=== PATIENT | female | born 1950 | race Caucasian/White ===

== ENCOUNTER 2018-02-18 13:45 | Emergency (ER) | payer MEDICARE ==
[2018-02-18 13:55] VITALS: BP 134/58
--- NOTE | 2018-02-18 14:22 | ER Document Report ---
ED Medical Screen (RME) - General Chief Complaint: Blurred Vision Stated Complaint: BLURRED VISION Time Seen by Provider: 02/18/18 14:22 TRAVEL OUTSIDE OF THE [place] IN LAST 30 DAYS: No - Related Data Allergies/Adverse Reactions: ibuprofen Adverse Reaction (Verified 02/18/18 13:47) Physical Exam - Vital signs Vitals: Temp Pulse Resp BP Pulse Ox 97.5 F 92 18 134/58 H 95 02/18/18 13:54 02/18/18 13:54 02/18/18 13:54 02/18/18 13:54 02/18/18 13:54 Course - Vital Signs Vital signs: Temp Pulse Resp BP Pulse Ox 97.5 F 92 18 134/58 H 95 02/18/18 13:54 02/18/18 13:54 02/18/18 13:54 02/18/18 13:54 02/18/18 13:54
--- NOTE | 2018-02-18 14:35 | ER Document Report ---
ED General - General Chief Complaint: Blurred Vision Stated Complaint: BLURRED VISION Time Seen by Provider: 02/18/18 14:22 TRAVEL OUTSIDE OF THE [place] IN LAST 30 DAYS: No - HPI Notes: 67-year-old female presents after being pulled over by police officers for swerving. Patient was driving from [place] to [place] to see her primary care doctor was pulled over for swirling suspicion of DWI. 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 Seen by her eye doctor a year ago and is scheduled to see him this month as well. Police called the ambulance for evaluation emergency department versus a driving under the influence. Patient has no complaints she feels that her baseline nothing is changed she did not want to be transported to the hospital. Patient able to ambulate at baseline neurologically intact. Patient is reading her iPad comfortably in the exam room. - Related Data Allergies/Adverse Reactions: ibuprofen Adverse Reaction (Verified 02/18/18 13:47) Past Medical History - Social History Smoking Status: Unknown if Ever Smoked Family History: Reviewed & Not Pertinent Review of Systems - Review of Systems Notes: REVIEW OF SYSTEMS: CONSTITUTIONAL: -fevers, -chills EENT: -eye pain, -difficulty swallowing, -nasal congestion CARDIOVASCULAR: -chest pain, -syncope. RESPIRATORY: -cough, -SOB GASTROINTESTINAL: -abdominal pain, -nausea, -vomiting, -diarrhea GENITOURINARY: -dysuria, -hematuria MUSCULOSKELETAL: -back pain, -neck pain SKIN: -rash or skin lesions. HEMATOLOGIC: -easy bruising or bleeding. LYMPHATIC: -swollen, enlarged glands. NEUROLOGICAL: -altered mental status or loss of consciousness, -headache, - neurologic symptoms PSYCHIATRIC: -anxiety, -depression. ALL OTHER SYSTEMS REVIEWED AND NEGATIVE. Physical Exam - Vital signs Vitals: Temp Pulse Resp BP Pulse Ox 97.5 F 92 18 134/58 H 95 02/18/18 13:54 02/18/18 13:54 02/18/18 13:54 02/18/18 13:54 02/18/18 13:54 - Notes Notes: PHYSICAL EXAMINATION: GENERAL: Well-appearing, well-nourished and in no acute distress. HEAD: Atraumatic, normocephalic. EYES: Pupils equal round and reactive to light, extraocular movements intact, sclera anicteric, conjunctiva are normal. ENT: nares patent, oropharynx clear without exudates. Moist mucous membranes. NECK: Normal range of motion, supple without lymphadenopathy LUNGS: Breath sounds clear to auscultation bilaterally and equal. No wheezes rales or rhonchi. HEART: Regular rate and rhythm without murmurs ABDOMEN: Soft, nontender, normoactive bowel sounds. No guarding, no rebound. No masses appreciated. EXTREMITIES: Normal range of motion, no pitting or edema. No cyanosis. NEUROLOGICAL: Cranial nerves grossly intact. Normal speech, normal gait. Normal sensory and motor exams. PSYCH: Normal mood, normal affect. SKIN: Warm, Dry, normal turgor, no rashes or lesions noted. Course - Re-evaluation Re-evalutation: 02/18/18 14:34 Well-appearing female no acute distress no complaints neurologically intact no visual trouble in the department. Sent in by police versus possible arrest for DWI. Patient will be discharged home improved follow-up with her family doctor return if anything changes. - Vital Signs Vital signs: Temp Pulse Resp BP Pulse Ox 97.5 F 92 18 134/58 H 95 02/18/18 13:54 02/18/18 13:54 02/18/18 13:54 02/18/18 13:54 02/18/18 13:54 Discharge - Discharge Clinical Impression: Overuse of medication Condition: Stable Disposition: HOME, SELF-CARE Instructions: Anxiety (OM)
== END 2018-02-18 14:38 | disposition home or self-care (01) ==
LOC: ER 13:45
DX: H53.8 Other visual disturbances (principal); Z91.14 Patient's other noncompliance with medication regimen
CPT/HCPCS: 99284